=== PATIENT | male | born 1980 | race Caucasian/White ===

== ENCOUNTER 2018-10-04 02:57 | Emergency (ER) | payer MEDICAID ==
[~2018-10-04] VITALS: Ht 170.2 cm; Wt 111.2 kg
[2018-10-04 04:01] VITALS: BP 197/122
== END 2018-10-04 04:01 | disposition home or self-care (01) ==
LOC: ED 02:57
DX: K12.2 Cellulitis and abscess of mouth (principal); I10 Essential (primary) hypertension; F41.9 Anxiety disorder, unspecified; Z98.84 Bariatric surgery status
CPT/HCPCS: J2001; Q0163